=== PATIENT | male | born 1955 | race Hispanic/Latino ===

== ENCOUNTER 2020-08-27 16:21 | Emergency (ER) | payer MEDICARE ==
[~2020-08-27] VITALS: Ht 167.6 cm; Wt 90.7 kg
[2020-08-27] MEDS ORDERED: ONDANSETRON HCL 4 MG ORAL DISINTEGRATING TAB ONE (18:10)
[2020-08-28] MEDS ORDERED: ISOSORBIDE MONO30 MG PO (11:02)
[2020-08-28] MEDS ORDERED: LISINOPRIL5 MG PO (11:02)
[2020-08-28] MEDS ORDERED: PLAVIX75 MG PO (11:02)
[2020-08-28] MEDS ORDERED: FLOMAX0.4 MG PO (11:02)
[2020-08-28] MEDS ORDERED: ATORVASTATIN CA20 MG PO (11:02)
[2020-08-28] MEDS ORDERED: GABAPENTIN300 MG PO (11:02)
[2020-08-28] MEDS ORDERED: METOPROLOL TART25 MG PO (11:02)
[2020-08-28] MEDS ORDERED: SERTRALINE HCL50 MG PO (11:02)
== END 2020-08-27 18:21 | disposition home or self-care (01) ==
LOC: ER 16:48
DX: R31.9 Hematuria, unspecified (principal); R33.9 Retention of urine, unspecified; I10 Essential (primary) hypertension; E11.9 Type 2 diabetes mellitus without complications
CPT/HCPCS: 51702; 99283; Q0162; 51700

== ENCOUNTER 2020-08-27 20:19 | Inpatient (IN) | payer MEDICARE ==
[~2020-08-27] VITALS: Ht 170.2 cm; Wt 86.2 kg
[2020-08-27 20:30] VITALS: BP 145/66
[2020-08-27 20:56] LABS: BASOPHILS % 0.4 % (0.0-1.0); EOSINOPHILS % 0.2 % (0.0-6.0); HEMATOCRIT 37.4 % (38.2-49.6); HEMOGLOBIN 12.4 g/dL (14.0-18.0); LYMPHOCYTES # (AUTO) 1.4 (1.0-3.2); LYMPHOCYTES % 14.6 % (18.0-39.1); MEAN CORPUSCULAR HEMOGLOBIN 29.3 pg (28-32); MEAN CORPUSCULAR HGB CONC 33.2 g/dL (31-35); MEAN CORPUSCULAR VOLUME 88.4 fL (81-99); MONOCYTES # (AUTO) 0.5 (0.2-0.8); MONOCYTES % 5.2 % (4.4-11.3); NEUTROPHILS # (AUTO) 7.6 (2.1-6.9); NEUTROPHILS % 79.4 % (38.7-80.0); PLATELET COUNT 239 x10e3/uL (140-360); RED BLOOD COUNT 4.23 x10e6/uL (4.3-5.7); RED CELL DISTRIBUTION WIDTH 13.8 % (11.7-14.4)
[2020-08-27 21:00] VITALS: BP 145/66
[2020-08-27 21:16] LABS: ALANINE AMINOTRANSFERASE 40 IU/L (0-55); ALBUMIN/GLOBULIN RATIO 1.3 (0.8-2.0); ALKALINE PHOSPHATASE 92 IU/L (40-150); ANION GAP 14.8 mmol/L (8-16); BLOOD UREA NITROGEN 14 mg/dL (7-26); BUN/CREATININE RATIO 19 (6-25); CALCIUM 9.1 mg/dL (8.4-10.2); CARBON DIOXIDE 22 mmol/L (22-29); CHLORIDE 103 mmol/L (98-107); CREATININE, SERUM 0.73 mg/dL (0.72-1.25); EST GLOMERULAR FILTRATION RATE > 60 ML/MIN (60-); GLUCOSE 110 mg/dL (74-118); POTASSIUM 3.8 mmol/L (3.5-5.1); SODIUM 136 mmol/L (136-145)
[2020-08-27 21:25] LABS: CLARITY,URINE TURBID (CLEAR); COLOR,URINE RED (YELLOW); KETONES,URINE 2+ (NEGATIVE); NITRITE,URINE POSITIVE (NEGATIVE); PROTEIN,URINE DIPSTICK >=300 (NEGATIVE); URINE UROBILINOGEN >=8 mg/dL (0.2 - 1)
[2020-08-27] MEDS ORDERED: CEFTRIAXONE SOD 1 GM VIAL IV SCH (21:30)
[2020-08-27 21:36] LABS: BACTERIA,URINE FEW /HPF; LEUKOCYTE ESTERASE ,URINE LARGE (NEGATIVE); RBC,URINE >50 /HPF (0-5)
[2020-08-27 21:50] VITALS: BP 145/66
[2020-08-27] MEDS ORDERED: SODIUM CHLORIDE 0.9% 250ML 250 ML ONE (22:24)
[2020-08-27] MEDS: CEFTRIAXONE SOD 1 GM in SODIUM CHLORIDE 0.9% 50ML 50 ML IV SCH (22:28)
[2020-08-27] MEDS ORDERED: ACETAMINOPHEN 325 MG TAB PO PRN (23:30)
[2020-08-27] MEDS ORDERED: HYDRALAZINE HCL 20 MG/ML VIAL IV PRN (23:30)
[2020-08-27] MEDS ORDERED: ONDANSETRON HCL INJ 2MG/ML 2ML 2 MG/ML VIAL IV PRN (23:30)
[2020-08-27] MEDS ORDERED: POLYETHYLENE GLYCOL 3350 17 GM PACK PO PRN (23:30)
[2020-08-27] MEDS ORDERED: TEMAZEPAM 15 MG CAP PO PRN (23:30)
[2020-08-28] VITALS (7 sets, daily range): BP systolic 128–164; BP diastolic 53–93
[2020-08-28 05:09] LABS: BASOPHILS % 0.4 % (0.0-1.0); EOSINOPHILS # (AUTO) 0.1 (0.0-0.4); EOSINOPHILS % 0.7 % (0.0-6.0); HEMATOCRIT 36.2 % (38.2-49.6); HEMOGLOBIN 12.1 g/dL (14.0-18.0); LYMPHOCYTES # (AUTO) 1.9 (1.0-3.2); LYMPHOCYTES % 22.9 % (18.0-39.1); MEAN CORPUSCULAR HEMOGLOBIN 29.3 pg (28-32); MEAN CORPUSCULAR HGB CONC 33.4 g/dL (31-35); MEAN CORPUSCULAR VOLUME 87.7 fL (81-99); MONOCYTES # (AUTO) 0.6 (0.2-0.8); MONOCYTES % 6.8 % (4.4-11.3); NEUTROPHILS # (AUTO) 5.9 (2.1-6.9); PLATELET COUNT 231 x10e3/uL (140-360); RED BLOOD COUNT 4.13 x10e6/uL (4.3-5.7); RED CELL DISTRIBUTION WIDTH 13.8 % (11.7-14.4)
[2020-08-28 05:40] LABS: CHOL/HDL RATIO 2.9 (3.9-4.7); PHOSPHORUS 3.5 MG/DL (2.3-4.7)
[2020-08-28 05:43] LABS: THYROID STIMULATING HORMONE 0.725 uIU/mL (0.350-4.940)
[2020-08-28 05:43] LABS: ALANINE AMINOTRANSFERASE 33 IU/L (0-55); ALBUMIN 3.7 g/dL (3.5-5.0); ALBUMIN/GLOBULIN RATIO 1.2 (0.8-2.0); ALKALINE PHOSPHATASE 81 IU/L (40-150); ANION GAP 12.8 mmol/L (8-16); BLOOD UREA NITROGEN 11 mg/dL (7-26); BUN/CREATININE RATIO 15 (6-25); CALCIUM 8.5 mg/dL (8.4-10.2); CARBON DIOXIDE 23 mmol/L (22-29); CHLORIDE 105 mmol/L (98-107); CREATININE, SERUM 0.71 mg/dL (0.72-1.25); EST GLOMERULAR FILTRATION RATE > 60 ML/MIN (60-); GLUCOSE 93 mg/dL (74-118); POTASSIUM 3.8 mmol/L (3.5-5.1); SODIUM 137 mmol/L (136-145)
[2020-08-28] MEDS: FAMOTIDINE 20 MG TAB PO SCH ×2 (07:30→16:30)
[2020-08-28] MEDS: DOCUSATE SODIUM 100 MG CAP PO SCH ×2 (09:00→20:59)
[2020-08-28] MEDS ORDERED: DOCUSATE SODIUM 100 MG CAP PO SCH (09:00)
[2020-08-28] MEDS ORDERED: ISOSORBIDE MONO30 MG PO (11:02)
[2020-08-28] MEDS ORDERED: ATORVASTATIN CA20 MG PO (11:02)
[2020-08-28] MEDS ORDERED: SERTRALINE HCL50 MG PO (11:02)
[2020-08-28] MEDS ORDERED: PLAVIX75 MG PO (11:02)
[2020-08-28] MEDS ORDERED: FLOMAX0.4 MG PO (11:02)
[2020-08-28] MEDS ORDERED: METOPROLOL TART25 MG PO (11:02)
[2020-08-28] MEDS ORDERED: LISINOPRIL5 MG PO (11:02)
[2020-08-28] MEDS ORDERED: GABAPENTIN300 MG PO (11:02)
[2020-08-28] MEDS: METOPROLOL TARTRATE 25 MG TAB PO SCH ×2 (12:00→21:06)
[2020-08-28] MEDS: GABAPENTIN 300 MG CAP PO SCH ×2 (12:00→20:59)
[2020-08-28] MEDS: TAMSULOSIN HCL 0.4 MG CAP PO SCH (17:00)
[2020-08-28] MEDS: SERTRALINE HCL 50 MG TAB PO SCH (17:00)
[2020-08-28] MEDS: ATORVASTATIN 40 MG TAB PO SCH (20:59)
[2020-08-28] MEDS: CEFTRIAXONE SOD 1 GM in SODIUM CHLORIDE 0.9% 50ML 50 ML IV SCH (21:04)
[2020-08-29] VITALS (10 sets, daily range): BP systolic 113–150; BP diastolic 59–86
[2020-08-29] MEDS ORDERED: METFORMIN HCL500 MG PO (06:13)
[2020-08-29] MEDS: DOCUSATE SODIUM 100 MG CAP PO SCH ×2 (08:04→17:02)
[2020-08-29] MEDS: ISOSORBIDE MONONITRATE 30 MG TAB CR PO SCH (08:04)
[2020-08-29] MEDS: FAMOTIDINE 20 MG TAB PO SCH ×2 (08:04→17:01)
[2020-08-29] MEDS: METOPROLOL TARTRATE 25 MG TAB PO SCH ×2 (08:05→21:15)
[2020-08-29] MEDS: GABAPENTIN 300 MG CAP PO SCH ×2 (08:06→21:15)
[2020-08-29] MEDS: TAMSULOSIN HCL 0.4 MG CAP PO SCH (17:01)
[2020-08-29] MEDS: SERTRALINE HCL 50 MG TAB PO SCH (17:01)
[2020-08-29] MEDS: ATORVASTATIN 40 MG TAB PO SCH (21:15)
[2020-08-29] MEDS: CEFTRIAXONE SOD 1 GM in SODIUM CHLORIDE 0.9% 50ML 50 ML IV SCH (21:15)
[2020-08-30] VITALS (8 sets, daily range): BP systolic 124–152; BP diastolic 60–71
[2020-08-30 04:58] LABS: BASOPHILS % 0.4 % (0.0-1.0); EOSINOPHILS # (AUTO) 0.2 (0.0-0.4); EOSINOPHILS % 1.4 % (0.0-6.0); HEMATOCRIT 37.5 % (38.2-49.6); HEMOGLOBIN 12.4 g/dL (14.0-18.0); LYMPHOCYTES # (AUTO) 2.1 (1.0-3.2); LYMPHOCYTES % 20.1 % (18.0-39.1); MEAN CORPUSCULAR HEMOGLOBIN 29.3 pg (28-32); MEAN CORPUSCULAR HGB CONC 33.1 g/dL (31-35); MEAN CORPUSCULAR VOLUME 88.7 fL (81-99); MONOCYTES # (AUTO) 0.8 (0.2-0.8); MONOCYTES % 7.5 % (4.4-11.3); NEUTROPHILS # (AUTO) 7.3 (2.1-6.9); NEUTROPHILS % 70.4 % (38.7-80.0); PLATELET COUNT 263 x10e3/uL (140-360); RED BLOOD COUNT 4.23 x10e6/uL (4.3-5.7); RED CELL DISTRIBUTION WIDTH 13.8 % (11.7-14.4)
[2020-08-30 05:28] LABS: ANION GAP 13.2 mmol/L (8-16); BLOOD UREA NITROGEN 11 mg/dL (7-26); BUN/CREATININE RATIO 15 (6-25); CALCIUM 9.1 mg/dL (8.4-10.2); CARBON DIOXIDE 23 mmol/L (22-29); CHLORIDE 105 mmol/L (98-107); CREATININE, SERUM 0.75 mg/dL (0.72-1.25); EST GLOMERULAR FILTRATION RATE > 60 ML/MIN (60-); GLUCOSE 98 mg/dL (74-118); POTASSIUM 4.2 mmol/L (3.5-5.1); SODIUM 137 mmol/L (136-145)
[2020-08-30] MEDS: FAMOTIDINE 20 MG TAB PO SCH ×2 (08:19→16:31)
[2020-08-30] MEDS: DOCUSATE SODIUM 100 MG CAP PO SCH ×2 (08:19→20:51)
[2020-08-30] MEDS: ISOSORBIDE MONONITRATE 30 MG TAB CR PO SCH (08:20)
[2020-08-30] MEDS: GABAPENTIN 300 MG CAP PO SCH ×2 (08:20→21:00)
[2020-08-30] MEDS: METOPROLOL TARTRATE 25 MG TAB PO SCH ×2 (08:20→21:00)
[2020-08-30] MEDS: SERTRALINE HCL 50 MG TAB PO SCH (16:31)
[2020-08-30] MEDS: TAMSULOSIN HCL 0.4 MG CAP PO SCH (16:31)
[2020-08-30] MEDS ORDERED: IOPAMIDOL 370 MG/ML 200 ML INFUS..BTL INJ ONE (19:48)
[2020-08-30] MEDS ORDERED: SODIUM CHLORIDE 0.9% 50ML 50 ML ONE (19:48)
[2020-08-30] MEDS: ATORVASTATIN 40 MG TAB PO SCH (21:00)
[2020-08-31] VITALS: BP 142/87
[2020-08-31 04:00] VITALS: BP 149/79
[2020-08-31 04:46] LABS: BASOPHILS % 0.4 % (0.0-1.0); EOSINOPHILS # (AUTO) 0.1 (0.0-0.4); EOSINOPHILS % 1.3 % (0.0-6.0); HEMATOCRIT 36.7 % (38.2-49.6); HEMOGLOBIN 12.1 g/dL (14.0-18.0); LYMPHOCYTES # (AUTO) 2.3 (1.0-3.2); MEAN CORPUSCULAR HEMOGLOBIN 29.1 pg (28-32); MEAN CORPUSCULAR VOLUME 88.2 fL (81-99); MONOCYTES # (AUTO) 0.7 (0.2-0.8); MONOCYTES % 6.8 % (4.4-11.3); NEUTROPHILS # (AUTO) 6.8 (2.1-6.9); NEUTROPHILS % 68.2 % (38.7-80.0); PLATELET COUNT 260 x10e3/uL (140-360); RED BLOOD COUNT 4.16 x10e6/uL (4.3-5.7); RED CELL DISTRIBUTION WIDTH 13.7 % (11.7-14.4)
[2020-08-31 05:09] LABS: ANION GAP 13.8 mmol/L (8-16); BLOOD UREA NITROGEN 12 mg/dL (7-26); BUN/CREATININE RATIO 16 (6-25); CALCIUM 9.2 mg/dL (8.4-10.2); CARBON DIOXIDE 25 mmol/L (22-29); CHLORIDE 102 mmol/L (98-107); CREATININE, SERUM 0.76 mg/dL (0.72-1.25); EST GLOMERULAR FILTRATION RATE > 60 ML/MIN (60-); GLUCOSE 110 mg/dL (74-118); POTASSIUM 3.8 mmol/L (3.5-5.1); SODIUM 137 mmol/L (136-145)
[2020-08-31] MEDS: FAMOTIDINE 20 MG TAB PO SCH ×2 (07:32→16:05)
[2020-08-31] MEDS: GABAPENTIN 300 MG CAP PO SCH (08:09)
[2020-08-31] MEDS: METOPROLOL TARTRATE 25 MG TAB PO SCH (08:09)
[2020-08-31] MEDS: ISOSORBIDE MONONITRATE 30 MG TAB CR PO SCH (08:09)
[2020-08-31] MEDS: DOCUSATE SODIUM 100 MG CAP PO SCH (08:09)
[2020-08-31 08:13] VITALS: BP 146/77
[2020-08-31 08:30] VITALS: BP 146/77
[2020-08-31 11:46] VITALS: BP 119/67
[2020-08-31 15:26] VITALS: BP 151/79
[2020-08-31] MEDS: SERTRALINE HCL 50 MG TAB PO SCH (16:05)
[2020-08-31] MEDS: TAMSULOSIN HCL 0.4 MG CAP PO SCH (16:05)
== END 2020-08-31 18:23 | disposition home or self-care (01) | DRG 726 ==
LOC: ER 20:36 → ERHOLD 21:05 → MED/SURG 21:47
PROVIDERS: ADMIT Internal Medicine; ATTEND Internal Medicine
DX: N40.1 Benign prostatic hyperplasia with lower urinary tract symptoms (principal); N39.0 Urinary tract infection, site not specified; R33.8 Other retention of urine; I10 Essential (primary) hypertension; E11.9 Type 2 diabetes mellitus without complications; F32.9 Major depressive disorder, single episode, unspecified; Z20.822 Contact with and (suspected) exposure to COVID-19; E66.9 Obesity, unspecified; Z68.29 Body mass index [BMI] 29.0-29.9, adult; N28.1 Cyst of kidney, acquired
CPT/HCPCS: 36415; 51700; 74177; 80048; 80053; 80061; 81001; 82948; 83036; 83735; 84100; 84443; 85025; 87086; 99284; J0696; J7050; Q9967; U0002